=== PATIENT | female | born 1960 | race African-American/Black ===

== ENCOUNTER 2016-09-05 18:17 | Emergency (ER) | payer SELFPAY ==
[2016-09-05] MEDS ORDERED: ANTIVERT PO ONE (19:37)
--- NOTE | 2016-09-05 19:44 | Emergency Department Report ---
Chief Complaint: Dizziness Stated Complaint: HEADACHE/FATIGUE Time Seen by Provider: 09/05/16 19:33 - HPI History of Present Illness: Patient is a 55-year-old [place] Sor[place] female who does not speak [place] presents to the ED for dizziness and headache 2 months. The transition line was activated(and HPI was derived that way. Patient states she's been dizzy all the time for the past 2 months. Patient states she was in the hospital in [facility] for dizziness on July 29 7016 patient states she was scanned and everything was normal. Patient states she has been vomiting a lot today. Patient states she has headaches sometimes due to her sinus history. Patient states she takes supplements for vestibular disorder and skin sores. Patient states she takes ginkco biloba/vinpocentine daily . Patient denies fever/shortness of breath/chest pain - ROS Review of Systems: As noted in HPI - Exam Vital Signs: Vital Signs 09/05/16 19:01 Temperature 98.6 F Pulse Rate 85 Respiratory 16 Rate Blood Pressure 132/80 O2 Sat by Pulse 100 Oximetry Physical Exam: GENERAL: Alert and oriented x3, no apparent distress, patient unable to walk on her own, requires assistance due to dizziness atraumatic. HEAD: Head is normocephalic and a-traumatic. NECK: Supple. Non edematous, No carotid bruits. No lymphadenopathy or thyromegaly. LUNGS: Symetrical with respiration, No wheezing, no rales or crackles, CTAB. HEART: S1, S2 present, regular rate and rhythm without murmur, no rubs, no gallops. MSE screening note: Focused history and physical exam performed. Due to findings the following was ordered: ED Medical Decision Making - Medical Decision Making Labs ordered, CT scan ordered. Patient to be seen by main ED physician. . - Differential Diagnosis Mnire's disease, vestibular neuritis, Labaryngitis, vertigo ED Disposition for MSE Condition: Stable
[2016-09-05] MEDS ORDERED: ZOFRAN ODT PO ONE (19:53)
[2016-09-05 20:41] LABS: Basophils % (Auto) 0.6 % (0.0-1.8); Eosinophils % (Auto) 2.3 % (0.0-4.3); Hematocrit 34.9 % (30.3-42.9); Hemoglobin 11.3 gm/dl (10.1-14.3); Mean Corpuscular HGB Conc 32 % (30-34); Mean Corpuscular Hemoglobin 27 pg (28-32); Mean Corpuscular Volume 84 fl (79-97); Platelet Count 301 K/mm3 (140-440); Red Blood Count 4.13 M/mm3 (3.65-5.03); Red Cell Distribution Width 13.2 % (13.2-15.2); White Blood Count 5.3 K/mm3 (4.5-11.0)
[2016-09-05 20:44] LABS: Alanine Aminotransferase 17 units/L (7-56); Albumin 4.1 g/dL (3.9-5); Albumin/Globulin Ratio 1.4 %; Alkaline Phosphatase 67 units/L (35-129); Anion Gap 18 mmol/L; Bilirubin,Total < 0.2 mg/dL (0.1-1.2); Blood Urea Nitrogen 16 mg/dL (7-17); Calcium 9.1 mg/dL (8.4-10.2); Carbon Dioxide 26 mmol/L (22-30); Chloride 103.3 mmol/L (98-107); Creatine Kinase 74 units/L (30-135); Glucose 135 mg/dL (65-100); Sodium 143 mmol/L (137-145); Total Protein 7.1 g/dL (6.3-8.2)
--- NOTE | 2016-09-05 21:37 | Cat Scan Report ---
FINAL REPORT PROCEDURE: CT HEAD/BRAIN WO CON TECHNIQUE: Computerized tomography of the head was performed without contrast material. HISTORY: Lightheadedness/Dizziness COMPARISON: No prior studies are available for comparison. FINDINGS: Changes of chronic sinusitis are seen. Mastoid air cells appear hypoplastic bilaterally. Small amount of fluid or thickening is seen in the left middle ear superiorly. This could be due to acute or chronic otitis media. No calvarial fracture is seen. Cerebral ventricles are normal in size. No acute intracranial hemorrhage or mass effect is seen. No CVA is seen. IMPRESSION: Changes of chronic sinusitis are seen with possible very mild changes of acute or chronic left-sided otitis media. No intracranial abnormality is seen.
[2016-09-06] MEDS ORDERED: ANTIVERT PO ONE (01:39)
[2016-09-06] MEDS ORDERED: NACL 0.9% 1000 ML 1,000 ML IV ONE (01:39)
[2016-09-06 04:06] VITALS: BP 114/73
--- NOTE | 2016-09-06 04:07 | Emergency Department Report ---
ED Dizziness HPI - General Chief Complaint: Dizziness Stated Complaint: HEADACHE/FATIGUE Time Seen by Provider: 09/05/16 19:33 Source: patient Mode of arrival: Ambulatory Limitations: Language Barrier (language line used) - History of Present Illness Initial Comments: 35-year-old female with a past medical history of chronic dizziness presents to the hospital complains of dizziness. Patient states it feels like both the room is spinning and that she is lightheaded. She developed multiple episodes of vomiting today. She has been doing this problem for the past 2 months and has been to other emergency rooms as well and received CAT scans that were normal. Patient instructed to follow-up with due to lack of insurance she was unable to. Patient taking supplements for vestibular disorder. No focal weakness reported. She also complaining of intermittent headaches as moderate in intensity. - Related Data Previous Rx's Medication Instructions Recorded Last Taken Type Loratadine/Pseudoephedrine 1 tab PO Q12H PRN #30 tablet 09/06/16 Unknown Rx [Claritin-D 12HR] Meclizine [Antivert] 25 mg PO TID PRN #30 tablet 09/06/16 Unknown Rx Ondansetron [Zofran Odt] 4 mg PO Q8HR PRN #20 tab.rapdis 09/06/16 Unknown Rx Allergies Allergy/AdvReac Type Severity Reaction Status Date / Time No Known Allergies Allergy Unverified 09/05/16 19:01 ED Review of Systems ROS: Stated complaint: HEADACHE/FATIGUE Other details as noted in HPI Comment: All other systems reviewed and negative Other: Constitutional: No fevers chills Eyes: No eye pain visual changes ENT: No ear pain or throat pain Neck: Denies pain Respiratory: Denies cough wheezing shortness of breath Cardiovascular: Denies chest pain, palpitations, syncope GI: Denies abdominal pain : Denies dysuria, urinary frequency, or urgency Musculoskeletal: Denies back pain, joint swelling Skin: Denies rash, lesions, erythema Neurologic: Denies numbness, weakness Psychiatric: Denies suicidal ideation, hallucinations ED Past Medical Hx - Past Medical History Previous Medical History?: No - Surgical History Past Surgical History?: No - Social History Smoking Status: Never Smoker Substance Use Type: None - Medications Home Medications: Home Medications Medication Instructions Recorded Confirmed Last Taken Type Loratadine/Pseudoephedrine 1 tab PO Q12H PRN #30 tablet 09/06/16 Unknown Rx [Claritin-D 12HR] Meclizine [Antivert] 25 mg PO TID PRN #30 tablet 09/06/16 Unknown Rx Ondansetron [Zofran Odt] 4 mg PO Q8HR PRN #20 tab.rapdis 09/06/16 Unknown Rx ED Physical Exam - General Limitations: Language Barrier - Other Other exam information: General: No limitations, patient is alert in no acute distress Head exam: Atraumatic, normocephalic Eyes exam: Normal appearance, pupils equal reactive to light, extraocular movements intact, no nystagmus ENT: Moist mucous membrane, patient has abnormal TMs bilateral. Right TM is voss in color without light reflex. Left TM appears to be partially sunken and voss in color. Neck exam: Normal inspection, full range of motion, no meningismus nontender Respiratory exam: Clear to auscultation bilateral, no wheezes, rales, crackles Cardiovascular: Normal rate and rhythm, normal heart sounds Abdomen: Soft, nondistended, and nontender, with normal bowel sounds, no rebound, or guarding Extremity: Full range of motion normal inspection no deformity Back: Normal Inspection, full range of motion, no tenderness Neurologic: Alert, oriented x3, cranial nerves intact, no motor or sensory deficit, ketjok-[id number]-[id number] function intact Psychiatric: normal affect, normal mood Skin: Warm, dry, intact ED Course Vital Signs 09/05/16 09/05/16 19:01 23:28 Temperature 98.6 F Pulse Rate 85 83 Respiratory 16 16 Rate Blood Pressure 132/80 116/76 O2 Sat by Pulse 100 98 Oximetry ED Medical Decision Making - Lab Data Result diagrams: 09/05/16 20:06 09/05/16 20:06 Lab Results 09/05/16 09/05/16 09/05/16 Range/Units 20:06 20:06 20:06 WBC 5.3 (4.5-11.0) K/mm3 RBC 4.13 (3.65-5.03) M/mm3 Hgb 11.3 (10.1-14.3) gm/dl Hct 34.9 (30.3-42.9) % MCV 84 (79-97) fl MCH 27 L (28-32) pg MCHC 32 (30-34) % RDW 13.2 (13.2-15.2) % Plt Count 301 (140-440) K/mm3 Lymph % (Auto) 29.1 (13.4-35.0) % Rogers % (Auto) 12.0 H (0.0-7.3) % Eos % (Auto) 2.3 (0.0-4.3) % Baso % (Auto) 0.6 (0.0-1.8) % Lymph # 1.5 (1.2-5.4) K/mm3 Rogers # 0.6 (0.0-0.8) K/mm3 Eos # 0.1 (0.0-0.4) K/mm3 Baso # 0.0 (0.0-0.1) K/mm3 Seg Neutrophils % 56.0 (40.0-70.0) % Seg Neutrophils # 2.9 (1.8-7.7) K/mm3 Sodium 143 (137-145) mmol/L Potassium 4.0 (3.6-5.0) mmol/L Chloride 103.3 (98-107) mmol/L Carbon Dioxide 26 (22-30) mmol/L Anion Gap 18 mmol/L BUN 16 (7-17) mg/dL Creatinine 0.5 L (0.7-1.2) mg/dL Estimated GFR > 60 ml/min BUN/Creatinine Ratio 32.00 % Glucose 135 H (65-100) mg/dL Lactic Acid 1.0 (0.7-2.0) mmol/L Calcium 9.1 (8.4-10.2) mg/dL Total Bilirubin < 0.2 (0.1-1.2) mg/dL AST 21 (5-40) units/L ALT 17 (7-56) units/L Alkaline Phosphatase 67 (35-129) units/L Total Creatine Kinase 74 (30-135) units/L CK-MB (CK-2) 1.0 (0.0-4.0) ng/mL CK-MB (CK-2) Rel Index 1.3 (0-4) Troponin T < 0.010 (0.00-0.029) ng/mL Total Protein 7.1 (6.3-8.2) g/dL Albumin 4.1 (3.9-5) g/dL Albumin/Globulin Ratio 1.4 % - EKG Data -: EKG Interpreted by Me (sinus rate [address] elevation or T-wave inversion) - EKG Data When compared to previous EKG there are: previous EKG unavailable - Radiology Data Radiology results: report reviewed (CT head: Chronic changes of sinusitis was very mild changes of acute or chronic left otitis media) - Medical Decision Making Patient has had the symptoms for [address] shows chronic findings. 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 She received 1 L normal saline in the ER, meclizine, and Zofran with improvement in symptoms. She'll be discharged on meclizine and ENT referral. She will be provided a copy of her CT report - Differential Diagnosis vertigo, sinusitis, otitis media, fluid in the ear Critical Care Time: No Critical care attestation.: If time is entered above; I have spent that time in minutes in the direct care of this critically ill patient, excluding procedure time. ED Disposition Clinical Impression: Dizziness, Chronic sinusitis, Chronic otitis media Disposition: DISCHARGED TO HOME OR SELFCARE Is pt being admited?: No Does the pt Need Aspirin: No Condition: Stable Instructions: Vertigo (ED), Sinusitis (ED) Additional Instructions: Take the medication as prescribed. It is very important that you follow-up with the ear nose and throat doctor for further management of your ongoing dizziness symptoms. Please return if symptoms worsen. Prescriptions: Loratadine/Pseudoephedrine [Claritin-D 12HR] 1 tab PO Q12H PRN #30 tablet PRN Reason: Allergy Symptoms Meclizine [Antivert] 25 mg PO TID PRN #30 tablet PRN Reason: Vertigo Ondansetron [Zofran Odt] 4 mg PO Q8HR PRN #20 tab.rapdis PRN Reason: Nausea And Vomiting Referrals: DINA CALLE MD [Staff Physician] - 3-5 Days [facility] [Provider Group] - 3-5 Days Time of Disposition: 04:08
== END 2016-09-06 04:31 | disposition home or self-care (01) ==
LOC: ED 18:17
DX: J32.9 Chronic sinusitis, unspecified (principal); H66.90 Otitis media, unspecified, unspecified ear; R42 Dizziness and giddiness
CPT/HCPCS: 36415; 70450; 80048; 80053; 82140; 82550; 82553; 84484; 85025; 93005; 93010; 96360; 99284; J7030; Q0162